=== PATIENT | male | born 1965 | race Hispanic/Latino ===

== ENCOUNTER 2017-12-10 02:09 | Emergency (ER) | payer SELFPAY | END 2017-12-10 02:22 | disposition home or self-care (01) | LOC: EDH 02:09 | DX: I10 Essential (primary) hypertension (principal); R42 Dizziness and giddiness; Z72.0 Tobacco use ==

== ENCOUNTER 2018-02-10 20:52 | Emergency (ER) | payer OTHER ==
[2018-02-10] MEDS ORDERED: TETANUS/DIPHTHERIA TOXOID [ADULT] 0.5 ML VIAL IM ONE (21:19)
== END 2018-02-10 21:33 | disposition home or self-care (01) ==
LOC: EDH 20:52
DX: S91.331A Puncture wound without foreign body, right foot, initial encounter (principal); I10 Essential (primary) hypertension; Z98.890 Other specified postprocedural states; Z72.0 Tobacco use; W45.0XXA Nail entering through skin, initial encounter; Y93.01 Activity, walking, marching and hiking; Y92.488 Other paved roadways as the place of occurrence of the external cause; Y99.8 Other external cause status
CPT/HCPCS: 73630; 90471; 90714

== ENCOUNTER 2018-02-11 06:48 | Emergency (ER) | payer OTHER ==
[2018-02-11] MEDS ORDERED: CLONIDINE HCL 0.1 MG TABLET ONE (07:09)
== END 2018-02-11 08:22 | disposition home or self-care (01) ==
LOC: EDH 06:48
DX: I10 Essential (primary) hypertension (principal); Z72.0 Tobacco use
CPT/HCPCS: 71045; 93005